=== PATIENT | male | born 1965 | race African-American/Black ===

== ENCOUNTER 2022-09-17 13:09 | Outpatient (CLI) | payer OTHER | END 2022-09-17 13:10 | disposition home or self-care (01) | LOC: CSHMRI 13:09 | DX: M51.24 Other intervertebral disc displacement, thoracic region (principal); M51.34 Other intervertebral disc degeneration, thoracic region; M48.56XD Collapsed vertebra, not elsewhere classified, lumbar region, subsequent encounter for fracture with routine healing | CPT/HCPCS: 72146; 72148 ==